=== PATIENT | male | born 1990 | race Caucasian/White ===

== ENCOUNTER 2017-06-02 19:43 | Emergency (ER) | payer BC, SELFPAY ==
[2017-06-02 19:43] VITALS: BP 127/76; PULSE 88; RESP 16; TEMP 36.7; O2SAT 97; BMI 24.3
--- NOTE | 2017-06-02 20:25 | RAD_ITS ---
STUDY: X-RAY - RIGHT FOOT CLINICAL: Male, 27 years old. Injury TECHNIQUE: 3 view(s) of the foot. COMPARISON: None. FINDINGS: Normal talus, calcaneus, and tarsal bones. Normal visualized subtalar, talonavicular, calcaneocuboid, tarsal and tarsometatarsal articulations. Normal metatarsi. Normal metatarsophalangeal joint of the great toe. Normal tibial and fibular sesamoid bones. Normal interphalangeal joint of the great toe. Normal phalanges of the great toe. Normal second through fifth metatarsophalangeal joints. Normal interphalangeal joints and phalanges of the lesser toes. The soft tissue structures are unremarkable. There is no demonstrated fracture. RAD/Foot min 3 Views IMPRESSION: Normal x-ray examination of the foot. Electronically Signed: Ruperto Ramírez MD at 20:45 EDT , Service support ,
--- NOTE | 2017-06-02 20:38 | ED.RN ---
PT ARRIVES STATING HE FELL OVER SOMEONE ELSE'S FOOT WHILE PLAYING VOLLEYBALL 2 DAYS AGO. SYMPTOMS HAVE NOT IMPROVED SINCE INITIAL FALL. BRUISES NOTED ON BOTH SIDE OF FOOT. SWELLING AND TENDERNESS NOTED. FULL RANGE OF MOTION W/SIGNIFICANT PAIN.
--- NOTE | 2017-06-02 21:03 | RAD_ITS ---
STUDY: X-RAY - RIGHT ANKLE REASON FOR EXAM: Male, 27 years old. Pain. TECHNIQUE: 3 view(s) of the ankle. COMPARISON: None. FINDINGS: Normal visualized distal tibia and fibula. Normal medial and lateral malleoli. Normal tibiotalar articulation and ankle mortise. Normal visualized talus and calcaneus. The visualized subtalar, talonavicular, calcaneocuboid and tarsal articulations are normal. There is no demonstrated fracture. The soft tissue structures are unremarkable. RAD/Ankle min 3 Views IMPRESSION: Normal x-ray examination of the ankle. Electronically Signed: Ruperto Ramírez MD at 21:25 EDT , Service support ,
--- NOTE | 2017-06-02 21:20 | ED.DCSUM_ITS ---
- ER Visit Summary Date of Service: 06/02/17 Chief Complaint: Right ankle injury History of Present Illness: The patient is a 27 M was playing volleyball 2 days ago when he came down after a jump and injured his right ankle. He notes swelling pain and ecchymosis. States that he works from home has been able to stay off of his foot today but he has been able to ambulate a little bit although it is painful. He denies any other injuries. Physical Examination: Afebrile vital signs are stable The right ankle demonstrates swelling over the lateral and medial malleolus and anteriorly. There is ecchymosis on the inferior aspects of the ankle. Negative Cerna's test. No fifth metatarsal pain. No fibular head pain. He is neurovascular intact distally. Though the patient guards the ligaments appear stable Test Results: X-rays of the foot and ankle were negative for fracture. Emergency Department Course and Treatment: Patient will use an Aircast. He was advised that if he is not improving he will need to follow-up. Impression: 1. Right ankle sprain This note was generated with [employer] dictation software. It may contain incorrect words, spelling, and punctuation that were not noted in review of the chart prior to signing ED Disposition - Plan for ED Patient: Disposition: Home or Assisted Living Chief Complaint: Lower Extremity Injury Instructions: ED Sprain Ankle W X Ray Referrals: Brian Sorto DO [STAFF PHYSICIAN] - 10-14 Days if not better
== END 2017-06-02 21:48 | disposition home or self-care (01) ==
PROVIDERS: Emergency Provider Emergency Medicine
DX: S93.401A Sprain of unspecified ligament of right ankle, initial encounter (principal); X50.1XXA Overexertion from prolonged static or awkward postures, initial encounter; Y93.68 Activity, volleyball (beach) (court); Y92.9 Unspecified place or not applicable; Y99.8 Other external cause status
CPT/HCPCS: 73610; 73630; 99283

== ENCOUNTER → 2019-04-06 08:01 | Outpatient (CLI) | payer BC, SELFPAY ==
--- NOTE | 2019-04-06 08:08 | CT_ITS ---
STUDY: CT MAXILLOFACIAL SINUSES REASON FOR EXAM: Male, 29 years old. SINUSITIS X YEARS RADIATION DOSAGE (If Supplied By Facility): CTDIvol = ( 33.06 ) mGy, DLP = ( 912.36 ) mGycm COMPARISON: None. TECHNIQUE: A CT scan of the sinuses was performed without IV contrast in the axial plane. Coronal and sagittal reconstruction images were also obtained. This exam was performed according to our departmental dose-optimization program, which includes automated exposure control, adjustment of the mA and/or kV according to patient size and/or use of iterative reconstruction technique. FINDINGS: The ventricles and sulci are normal in size and shape. The basal ganglia appear to be normal. The inner and outer tables of the skull are intact. The frontal sinuses appear to be normal. Extensive mucoperiosteal reaction is noted involving the ethmoid sinuses. There is occlusion of the maxillary infundibula with sinusitis involving the maxillary sinuses bilaterally. The patient appears to have had bilateral uncinectomies. The sphenoid sinus is normal. The mastoid air cells appear to be normal. CT/Sinus/Facial Bone IMPRESSION: Extensive mucoperiosteal reaction is seen in the ethmoid and both maxillary sinuses from chronic sinusitis.. Electronically Signed: Eloy Hensley, at 16:03 EST Tel , Service support ,
== END ==
PROVIDERS: Referring Provider Otolaryngology; Visit Provider Otolaryngology
DX: J32.9 Chronic sinusitis, unspecified (principal)
CPT/HCPCS: 70486

== ENCOUNTER → 2019-08-04 | Outpatient (CLI) | payer BC, SELFPAY | END | disposition home or self-care (01) | LOC: LABSPEC 12:09 | PROVIDERS: Referring Provider Otolaryngology; Visit Provider Otolaryngology | DX: Z11.59 Encounter for screening for other viral diseases (principal) | CPT/HCPCS: 87635; G2023; U0003 ==

== ENCOUNTER → 2019-08-09 | Outpatient (CLI) | payer BC, SELFPAY ==
--- NOTE | 2019-08-09 14:30 | TUR_PTH ---
PATIENT: MARTINA LOPES LOC: [facility] U#:[id number] AGE/SX: 29/M ROOM: RE08/09/[address]: Dr. Jose Burks MD : 1990 BED: DIS: 08/09/2019 SPEC #: [id number] RECD: 08/09/19 15:09 STATUS: MICK DEENA #: [id number] RHETT: 08/09/19 14:[address]: Jose Burks DEPT: SURGICAL PATHOLOGY RECD BY: Vicente Vee ENTERED: 08/10/19 09:13 SP TYPE: TURBINATES OTHR DR: No Primary Care Phys [facility] Tissues: A - Nasal turbinate, NOS B - Nasal turbinate, NOS Procedures: Surgery Specimen Level III HEADER OPERATION: Functional endoscopic sinus surgery PRE-OP DIAGNOSIS: Allergic rhinitis; acute recurrent pansinusitis TISSUE SUBMITTED: A - Left nasal turbinates, B - Right nasal turbinates MICROSCOPIC DIAGNOSIS A. Left nasal turbinates: Fragments of respiratory mucosa with chronic inflammation and bone. B. Right nasal turbinates: Fragments of respiratory mucosa with chronic inflammation and bone. GAURAV:rodolfo 08/16/19 MICROSCOPIC DESCRIPTION Slides are reviewed. GROSS DESCRIPTION A - Received in fixative is one container labeled with the patient's name and designated left nasal turbinates. The specimen consists of multiple irregular fragments of rao soft tissue mixed with fragments of bone that in aggregate measure 5 x 3 x 0.3 cm. The specimen is totally submitted in two cassettes after decalcification. B - Received in fixative is one container labeled with the patient's name and designated right nasal turbinates. The specimen consists of multiple irregular fragments of rao soft tissue mixed with fragments of bone that in aggregate measure 3 x 2.5 x 0.3 cm. The specimen is totally submitted in one cassette after decalcification. / GAURAV:rodolfo 08/10/19 TC:3 CPT: 26955 x2, 12082 x2
== END | disposition home or self-care (01) ==
LOC: LABSPEC 15:32
PROVIDERS: Referring Provider Otolaryngology; Visit Provider Otolaryngology
DX: J30.9 Allergic rhinitis, unspecified (principal); J01.41 Acute recurrent pansinusitis
CPT/HCPCS: 88304

== ENCOUNTER 2020-11-20 07:15 | Day surgery (SDC) | payer BC, SELFPAY ==
--- NOTE | 2020-11-19 23:33 | HP.PCM_ITS ---
History and Physical Date of Admission: 11/20/20 HISTORY OF PRESENT ILLNESS 30 year old man presents with multiple soft tissue masses that have increased in size over the last several months and are intermittently painful when bumped. The soft tissue masses involve bilateral upper extremities, bilateral lower extremities, chest wall, abdominal wall, and back. He states he had several of these removed about 10 years ago. They are located on the left medial proximal arm/shoulder, left lateral arm, left mid dorsal forearm, right proximal ulnar forearm cluster x4, right mid dorsal forearm, right medial thigh, right anterior thigh, right posterior thigh cluster x2, left medial thigh, left anterior thigh cluster x3, left posterior thigh cluster x2, left lateral chest wall, supraumbilical area, right lower back, right lateral back/flank, left lower back, and left lateral back/flank. He denies fever. He denies trauma. He presents at this time for further evaluation and treatment. FAMILY HISTORY Hypertension SOCIAL HISTORY Smoking Status: Never smoker alcohol intake: never substance use type: does not use ALLERGIES No Known Allergies MEDICATIONS NK REVIEW OF SYSTEMS General - Denies fever, fatigue, and weight loss. Eyes - Denies cataracts and glaucoma. ENT - Denies nasal congestion and sore throat. Endocrine - Denies excessive thirst and urination. Skin - Denies skin cancer. Has multiple soft tissue masses. Musculoskeletal - Denies joint pain, joint stiffness, weakness of muscles and joints, back pain, and arthritis. Neuro - Denies headaches. Cardiovascular - Denies chest pain, fatigue, and shortness of breath with exertion. Psych - Denies anxiety and depression. Respiratory - Denies chronic cough and shortness of breath. Gastrointestinal - Denies nausea, vomiting, diarrhea, and constipation. Hematologic - Denies abnormal bruising and bleeding. Genitourinary - Denies hematuria and urinary frequency. PHYSICAL EXAMINATION General - Alert and Oriented. HEENT - PERRL. EOMI. Throat is clear. Neck - Supple and nontender. No cervical adenopathy. Chest wall - On the left lateral chest wall is a soft tissue mass that measures 2 cm. Slight tenderness when bumped. Mobile. No ulceration. Lungs - Clear to auscultation. Heart - Regular rate and rhythm. Abdomen - Soft and nondistended. On the supraumbilical area is a soft tissue mass that measures 3 cm. Mobile. Slight tenderness when bumped. No ulceration. Extremities - FROM. No axillary adenopathy. Radial pulses are palpable. On the left medial proximal arm/shoulder is a soft tissue mass that measures 10 cm. Slight tenderness when bumped. Mobile. No ulceration. On the left lateral arm is a soft tissue mass that measures 4 cm. Slight tenderness when bumped. Mobile. No ulceration. On the left mid dorsal forearm is a soft tissue mass that measures 2 cm. Slight tenderness when bumped. Mobile. No ulceration. On the right proximal ulnar forearm are soft tissue masses cluster x4. They measure 4 cm proximally, 1.5 cm x2 laterally, and 4 cm distally. Slight tenderness when bumped. Mobile. No ulceration. On the right mid dorsal forearm is a soft tissue mass that measures 2 cm. Mobile. Slight tenderness when bumped. No ulceration. On the right medial thigh is a soft tissue mass that measures 2 cm. Mobile. Slight tenderness when bumped. No ulceration. On the right anterior thigh is a soft tissue mass that measures 2 cm. Mobile. Slight tenderness when bumped. No ulceration. On the right posterior thigh are soft tissue masses cluster x2. They measure 2 cm each. Mobile. Slight tenderness when bumped. No ulceration. On the left medial thigh is a soft tissue mass that measures 2 cm. Mobile. Slight tenderness when bumped. No ulceration. On the left anterior thigh are soft tissue masses cluster x3. They measure 2 cm each. Mobile. Slight tenderness when bumped. No ulceration. On the left posterior thigh are soft tissue masses cluster x2. They measure 2 cm each. Mobile. Slight tenderness when bumped. No ulceration. Back - On the right lower back is a soft tissue mass that measures 5 cm. Mobile. Slight tenderness when bumped. No ulceration. On the left lower back is a soft tissue mass that measures 2 cm. Mobile. Slight tenderness when bumped. No ulceration. On the right lateral back/flank is a soft tissue mass that measures 2 cm. Mobile. Slight tenderness when bumped. No ulceration. On the left lateral back/flank is a soft tissue mass that measures 3 cm. Mobile. Slight tenderness when bumped. No ulceration. Neuro - CN II-XII grossly intact. Psych - Normal mood and affect. ASSESSMENT 1. 10 cm soft tissue mass left medial proximal arm/shoulder. 2. 4 cm soft tissue mass left lateral arm. 3. 2 cm soft tissue mass left lateral chest wall. 4. 3 cm soft tissue mass supraumbilical area. 5. 2 cm soft tissue mass left mid dorsal forearm. 6. 2 cm soft tissue mass right lateral back/flank. 7. 3 cm soft tissue mass left lateral back/flank. 8. 2 cm soft tissue mass left lower back. 9. 5 cm soft tissue mass right lower back. 10. 2 cm soft tissue masses cluster x2 left posterior thigh. 11. 2 cm soft tissue masses cluster x2 right posterior thigh. 12. 4 cm x2 and 1.5 cm x2 soft tissue masses cluster x4 right proximal ulnar forearm. 13. 2 cm soft tissue mass right mid dorsal forearm. 14. 2 cm soft tissue mass right medial thigh. 15. 2 cm soft tissue mass right anterior thigh. 16. 2 cm soft tissue mass left medial thigh. 17. 2 cm soft tissue masses cluster x3 left anterior thigh. PLAN RECOMMEND EXCISION OF THESE PAINFUL SOFT TISSUE MASSES AND SEND THEM TO PATHOLOGY FOR ANALYSIS TO RULE OUT CARCINOMA. THE SURGERY WILL BE DONE UNDER LOCAL ANESTHESIA AND IV SEDATION ON AN OUTPATIENT BASIS. I USUALLY LIMIT IV SEDATION CASES TO 2 HOURS OR LESS. SO THESE SOFT TISSUE MASSES WILL BE EXCISED IN STAGES. I WOULD ALLOW UP TO 3 MONTHS IN BETWEEN SURGERIES TO ALLOW HEALING. ALSO I TRY TO DO THEM BASED ON LOCATION TO MINIMIZE HAVING TO TURN THE PATIENT DURING SURGERY. WILL START WITH LESIONS 1-5 FOR THE FIRST SESSION. FOR THE SECOND SESSION WILL DO LESIONS 6-11. FOR THE THIRD SESSION WILL DO LESIONS 12-13. FOR THE FOURTH SESSION WILL DO LESIONS 14-17. Patient was informed of the risks and complications of the procedure including alternatives to surgery. These were discussed with the patient personally. Patient voices understanding and wishes to proceed. Some of the risks and complications were included in a form from the [employer]. We discussed the current risks associated with COVID-19. While it is understood that there is a community spread of COVID-19, the risk of jackelin COVID-19 while at [place] ([facility]) is very low; however, the risk cannot be completely mitigated because of the community spread of the disease. We discussed in detail the risk of exposure to and/or potential harm posed by the COVID-19 virus with having a surgery/procedure at this time versus the risk of delaying the surgery/procedure. It is not possible to know either the risk of delaying the surgery or procedure or chance of getting an infection with perfect accuracy, but a joint decision was made to proceed at this time with the scheduled surgery/procedure as indicated on the consent form. Patient was notified that we will need to comply with any screening or testing WC wishes to perform or that surgery may be delayed for any positive results. Procedure Criteria Procedure Type:?Elective COVID Risk Discussion: The surgeon/proceduralist and patient have discussed in detail the risk of exposure to and/or potential harm posed by the COVID-19 virus with having a surgery/procedure at this time versus the risk of delaying the surgery/procedure.? It is not possible to know either the risk of delaying the surgery or procedure or chance of getting an infection with perfect accuracy, but a joint decision was made between the patient and the surgeon/proceduralist to proceed at this time with the scheduled surgery/procedure as indicated on the consent form.
[2020-11-20] VITALS (7 sets, daily range): BP systolic 109–123; BP diastolic 67–76; PULSE 63–71; RESP 14–18; TEMP 36.1–36.4; O2SAT 97–100; BMI 25.5
[2020-11-20] MEDS: Lactated Ringers 1,000 ML 100 ML IV (07:57)
--- NOTE | 2020-11-20 08:45 | TISS_PTH ---
PATIENT: MARTINA LOPES [place] [facility] [place][id number] AGE/SX: 30/M ROOM: RE11/20/[address]: Dr. Chaz Nogueira MD : 1990 BED: DIS: 11/20/2020 SPEC #: [id number] RECD: 11/20/20 11:25 STATUS: MICK [facility] #: [id number] RHETT: 11/20/20 08:[address]: Chaz Nogueira DEPT: SURGICAL PATHOLOGY RECD BY: Vicente Vee ENTERED: 11/20/20 13:26 SP TYPE: Tissue Bx OT DR: No Primary Care Phys Tissues: A - Soft tissues, NOS B - Soft tissues, NOS C - Soft tissues, NOS D - Soft tissues, NOS E - Soft tissues, NOS F - Soft tissues, NOS G - Soft tissues, NOS Procedures: Surgery Specimen Level III HEADER OPERATION: Excision soft tissue masses, left proximal shoulder PRE-OP DIAGNOSIS: 10 cm soft tissue mass left medial proximal arm/shoulder; 4 cm soft tissue mass left lateral arm; 2 cm soft tissue mass left lateral chest wall; 3 cm soft tissue mass supraumbilical area; 2?cm soft tissue mass left mid dorsal forearm TISSUE SUBMITTED: A - Left lateral chest wall, B - Left mid dorsal ulnar, C - Left mid dorsal radial, D - Left proximal forearm, E - Left lateral arm, F - Left proximal shoulder, G - Supraumbilical MICROSCOPIC DIAGNOSIS A. Left lateral chest wall lesion, biopsy: Mature adipose tissue, consistent with lipoma. B. Left mid dorsal ulnar, excisional biopsy: Angiolipoma. C. Left mid dorsal radial mass, biopsy: Angiolipoma. D. Left proximal forearm, biopsy: Angiolipoma. E. Left lateral arm mass, biopsy: Mature adipose tissue, consistent with lipoma. F. Left proximal shoulder mass, biopsy: Mature adipose tissue, consistent with lipoma. G. Supraumbilical mass, biopsy: Fragments of mature adipose tissue, consistent with focal area of angiolipoma. SJ:rodolfo 11/21/2020 MICROSCOPIC DESCRIPTION Slides are reviewed. GROSS DESCRIPTION A - Received in fixative is one container labeled with the patient's name and designated left lateral chest wall. The specimen consists of an irregular piece of yellow adipose tissue measuring 2.5 x 2 x 0.5 cm. The entire specimen is submitted in one cassette. B - Received in fixative is one container labeled with the patient's name and designated left mid dorsal ulna. The specimen consists of a piece of yellow adipose tissue measuring 1 x 1 x 0.2 cm. The specimen is bisected and submitted entirely in one cassette. C - Received in fixative is one container labeled with the patient's name and designated left mid dorsal radial. The specimen consists of a piece of yellow adipose tissue measuring 1.7 x 1 x 0.4 cm. The specimen is bisected and submitted entirely in one cassette. D - Received in fixative is one container labeled with the patient's name and designated left proximal forearm. The specimen consists of a piece of yellow adipose tissue measuring 1 x 1 x 0.5 cm. The specimen is bisected and submitted entirely in one cassette. E - Received in fixative is one container labeled with the patient's name and designated left lateral arm. The specimen consists of multiple pieces of yellow adipose tissue that in aggregate measure 3 x 2 x 1.5 cm. The largest piece measures 2 cm in greatest dimension. Sections reveal yellow adipose cut surfaces without area of hemorrhage, necrosis or cystic degeneration. F[employer] Teacher sections are submitted in one cassette. F - Received in fixative is one container labeled with the patient's name and designated left proximal shoulder. The specimen consists of two irregular pieces of yellow adipose tissue measuring 8 x 6.5 x 3 cm and 5 x 4 x 2 cm. Sections reveal yellow adipose cut surfaces without area of hemorrhage, necrosis or cystic degeneration. Fitness Studies Teacher sections are submitted in four cassettes. G - Received in fixative is one container labeled with the patient's name and designated supraumbilical. The specimen consists of three pieces of yellow adipose tissue that in aggregate measure 2 x 1.5 x 0.7 cm. The largest piece is bisected. The entire specimen is submitted in one cassette. / GAURAV:rodolfo 11/20/20 TC:1 CPT: 06844 x7
[2020-11-20] MEDS: Cefazolin 2 GM in 0.9% Normal Saline 100 ML IV (08:46)
[2020-11-20] MEDS: Lidocaine 1% /Epi 1:100 (50ml) 50 ML VIAL (10:00)
[2020-11-20] MEDS: Mupirocin Ointment 22gm Tube 1 APPLIC (10:07)
--- NOTE | 2020-11-20 10:13 | OP.PCM_ITS ---
Problems Associated Problem List Diagnoses (1) Mass of left upper extremity: (2) Mass of chest wall: (3) Abdominal wall mass of epigastric region: Report of Operation Date of Procedure: 11/20/20 Pre-Operative Diagnosis: 1. 10 cm soft tissue mass left medial proximal arm/sh oulder. 2. 4 cm soft tissue mass left lateral arm. 3. 2 cm soft tissue mass left lateral chest wall. 4. 3 cm soft tissue mass supraumbilical area. 5. 2 cm soft tissue mass left mid dorsal forearm, radial. 6. 2 cm soft tissue mass left mid dorsal forearm, ulnar. 7. 2 cm soft tissue mass left proximal forearm. Post-Operative Diagnosis: Same. Surgery/Procedure Performed:: 1. Excision 10 cm soft tissue mass left medial proximal arm/shoulder with 10 cm layered closure. 2. Excision 4 cm soft tissue mass left lateral arm with 4 cm layered closure. 3. Excision 2 cm soft tissue mass left lateral chest wall with 2 cm layered closure. 4. Excision 3 cm soft tissue mass supraumbilical area with 3 cm layered closure. 5. Excision 2 cm soft tissue mass left mid dorsal forearm, radial, with 2 cm layered closure. 6. Excision 2 cm soft tissue mass left mid dorsal forearm, ulnar, with 2 cm layered closure. 7. Excision 2 cm soft tissue mass left proximal forearm with 2 cm layered closure. Description of Surgical Findings:: 30 year old man presents with multiple soft tissue masses that have increased in size over the last several months and are intermittently painful when bumped. The soft tissue masses involve bilateral upper extremities, bilateral lower extremities, chest wall, abdominal wall, and back. He states he had several of these removed about 10 years ago. They are located on the left medial proximal arm/shoulder, left lateral arm, left mid dorsal forearm, right proximal ulnar forearm cluster x4, right mid dorsal forearm, right medial thigh, right anterior thigh, right posterior thigh cluster x2, left medial thigh, left anterior thigh cluster x3, left posterior thigh cluster x2, left lateral chest wall, supraumbilical area, right lower back, right lateral back/flank, left lower back, and left lateral back/flank. He denies fever. He denies trauma. Patient was informed of the risks and complications of the procedure including alternatives to surgery. These were discussed with the patient personally. Patient voices understanding and wishes to proceed. Some of the risks and complications were included in a form from the [employer]. I used Tony absorbable hemostat, (left medial proximal arm/shoulder). Reference Number - [id number]. Lot Number - [id number]. Expiration - July 05, 2025. Surgeon: Chaz Nogueira millwork estimator: Billy Scales Type of Anesthesia: Local MAC (xylocaine with epinephrine and IV sedation.) Specimen's removed: 1. Soft tissue mass left medial proximal arm/shoulder to Pathology. 2. Soft tissue mass left lateral arm to Pathology. 3. Soft tissue mass left lateral chest wall to Pathology. 4. Soft tissue mass supraumbilical area to Pathology. 5. Soft tissue mass left mid dorsal forearm, radial, to Pathology. 6. Soft tissue mass left mid dorsal forearm, ulnar, to Pathology. 7. Soft tissue mass left proximal forearm to Pathology. Drains: Ted (left medial proximal arm/shoulder). Estimated Blood Loss (mL): 20. Description of Procedure: Patient was taken to OR in supine position and was given IV sedation. The left upper extremity and shoulder, and supraumbilical area and left lateral chest wall areas were prepped and draped in the usual fashion. SCD's were placed for DVT prophylaxis. Perioperative antibiotics were given intravenously. The various soft tissue masses (left medial proximal arm/shoulder, left lateral arm, left lateral chest wall, supraumbilical area, left mid dorsal forearm, radial, left mid dorsal forearm, ulnar, and left proximal forearm) were infiltrated with xylocaine and epinephrine. After waiting 5 minutes for the anesthetic to take effect, I made longitudinal, oblique, and horizontal incisions into the subcutaneous tissue where these soft tissue masses were located. The masses were well encapsulated and sharply dissected free. Some of the soft tissue masses were adherent to the underlying muscle. After their excision, I sent these soft tissue masses (left medial proximal arm/shoulder, left lateral arm, left lateral chest wall, supraumbilical area, left mid dorsal forearm, radial, left mid dorsal forearm, ulnar, and left proximal forearm) separately to Pathology for analysis to rule out carcinoma. Hemostasis was obtained with electrocautery. The wounds were irrigated with saline. The left medial proximal arm/shoulder wound was quite large after the excision of the soft tissue mass (10 cm). I placed a size 15 Ted drain through a separate stab incision into this wound and secured it to the skin with 3-0 Nylon suture. I sprayed Tony absorbable hemostat into this large wound to minimize seroma formation. All 7 of these wounds were closed in a layered fashion with 4-0 Monocryl interrupted sutures for the deep dermis and subcutaneous tissue. The skin was approximated with 4-0 Prolene simple interrupted sutures. Antibiotic ointment was applied to the suture lines followed by 4x4 gauze and compression daniel wrap for the 5 lesions on the left upper extremity and shoulder area. The two incisions on the supraumbilical area and left lateral chest wall area were dressed with an Op-site dressing. The left medial proximal arm/shoulder incision was 10 cm. The left lateral arm incision was 4 cm. The left lateral chest wall incision was 2 cm. The supraumbilical area incision was 3 cm. The left mid dorsal forearm, radial, incision was 2 cm. The left mid dorsal forearm, ulnar, incision was 2 cm. The left proximal forearm incision was 2 cm. Patient tolerated the procedure well and was sent to PACU in satisfactory condition. Patient will be sent home on antibiotics and pain medication. He will keep his left arm elevated during the initial postoperative period. Patient will followup in a week for a wound check and for discussion of the pathology report. The drain will be removed in 10-14 days. The sutures will be removed in 2 weeks. After healing has occurred, will proceed with more excision of soft tissue masses on another part of his body. Grafts/Implants Used: Tony. Complications None. Admit VTE Documentation VTE Present on Admission: No VTE Mechan Device Prophylaxis: SCD's VTE Pharm Prophylaxis ordered?: No Addendum Addendum: Surgery Charges CPT - 76353 ICD-10 - R22.32 80873 R22.32 95528 R22.2 80355 R19.06 02222 R22.32 16431 R22.32 79847 R22.32
--- NOTE | 2020-11-20 11:44 | PCM.DC ---
Discharge Instructions Diet Discharge Diet: No restrictions Activity Discharge Activity: May Not Drive (when using narcotics), May Not Shower (until the drain is removed.) and - (no heavy lifting left arm. elevate left arm.) May shower in (days): 7 (after the drain is removed.) May resume sexual activity in: No Restrictions Weight Bearing Status: Weight bearing as tolerated Lifting Restrictions: 20 lbs. Keep extremity elevated above heart level: Left Arm Dressing / Incision Call your doctor if your incision/area has: Continuous Slow Oozing, Sudden Increased Bleeding, Increased Pain/ Swelling, Increased Redness, Foul Smelling Discharge and Swelling at the incision site Call your doctor if you observe: Fever of 101 or Higher, Coldness, Increased Pain, Shortness of breath, Chest pain, Calf discomfort and Uncontrolled pain Suture Line Care: - (apply antibiotic ointment to suture lines daily.) Change Dressing in: 2 days (apply antibiotic ointment to suture line followed by gauze dressing and a compression daniel wrap) Cleanse incision/area with: - (may get incision wet in the shower after the drian is removed.) Drain: Suction (empty and record outpatientwwww) Follow Up Care Please Follow Up With: Chaz Nogueira MD When: 0ne week. call [phone] for appt. Test Results: Test results from this visit will be discussed in further detail at your follow-up appointment, if applicable. Discharge Plan Admission Primary Reason for Your Visit: multiple lipomas Attending Provider: Chaz Nogueira Primary Care Provider: Care Physician,No Primary Discharge Orders/Prescriptions Prescriptions: New doxycycline hyclate 100 mg capsule 100 mg PO BID Qty: 30 RF: 0 oxycodone-acetaminophen [Percocet] 5-325 mg tablet 1 tab PO Q6H PRN (Reason: pain (scale score 7-10)) 7 Days Qty: 28 RF: 0 Referrals / Follow Up: Care Physician,No Primary [Primary Care Provider] - Disposition Disposition (needs filled in before D/C Order can be placed): Home, Self Care
== END 2020-11-20 12:04 | disposition home or self-care (01) ==
LOC: SDC 07:16 → AC 07:18
PROVIDERS: Referring Provider Surgery; Visit Provider Surgery
PROC: (CPT 21555; principal; 2020-11-20 08:30)
DX: D17.22 Benign lipomatous neoplasm of skin and subcutaneous tissue of left arm (principal); D17.1 Benign lipomatous neoplasm of skin and subcutaneous tissue of trunk
CPT/HCPCS: 00800; 21555; 22903; 23071; 24071; 25075 ×3; 88304; 88305; J7120; J2405

== ENCOUNTER → 2023-10-21 | Outpatient (CLI) | payer BC, SELFPAY ==
[2023-10-21 12:27] LABS: Absolute Lymphocyte Count 1.06 X10^3/uL (0.83-4.51); Absolute Neutrophil Count 2.8 X10^3/uL (2.0-7.7); Basophil# 0.01 X10^3/uL; Basophil% 0.2 % (0-1); Eosinophil# 0.12 X10^3/uL; Eosinophils% 2.8 % (0-5); Hematocrit 45.2 % (40-54); Hemoglobin 15.1 g/dL (13.0-16.5); Lymphocyte # 1.06 X10^3/ul (0.83-4.51); Lymphocyte % 24.4 % (19-41); Mean Corp Hgb Conc 33.4 g/dL (32-36); Mean Corpuscular Hgb 27.6 pg (27.0-32.0); Mean Corpuscular Volume 82.5 fL (80-94); Mean Platelet Vol. 9.4 fl (6.2-12.0); Monocyte% 6.9 % (0-10); NRBC Flagged by Analyzer 0 % (0-5); Neutrophil # 2.84 X10^3/uL (2.7-7.7); Neutrophil % 65.2 % (47-70); Platelet Count 241 K/mm3 (150-450); RBC Distribution Width CV 12.5 % (11.6-14.6); RBC Distribution Width SD 37.3 fl (35.1-43.9); Red Blood Count 5.48 M/mm3 (4.6-6.2); White Blood Count 4.4 K/mm3 (4.4-11.0)
[2023-10-21 12:45] LABS: ALB/GLOB Ratio 1.1 RATIO (0.9-2.4); AST(SGOT) 15 U/L (15-37); Alanine Aminotransfer ALT/SGPT 19 U/L (16-61); Albumin, Serum 3.7 g/dL (3.2-5.0); Alkaline Phosphatase 63 U/L (45-117); Anion Gap 4 (5-15); BUN 17 mg/dL (7-18); BUN/Creat Ratio 15.2 RATIO (10-20); Calcium,Total 9.1 mg/dL (8.5-10.1); Chloride 104 mmol/L (98-107); Cholesterol 132 mg/dL (200); Creatinine, Serum 1.12 mg/dL (0.70-1.30); EST Glomerular Filtration Rate 80 mL/min (>60); Est Glom Filt Rate - Afr Amer 97 mL/min (>60); Globulin 3.4 g/dL (2.2-4.2); Glucose 92 mg/dL (74-106); High Density Lipoprotein 44 mg/dL; Potassium 4.2 mmol/L (3.5-5.1); Protein, Total 7.1 g/dL (6.4-8.2); Sodium Level 138 mmol/L (136-145); Triglycerides 82 mg/dL; Very Low Density Lipoprotein 16 mg/dL (5-40)
== END | disposition home or self-care (01) ==
LOC: BFHLAB 09:27
PROVIDERS: Referring Provider Nurse Practitioner Family; Visit Provider Nurse Practitioner Family
DX: Z00.01 Encounter for general adult medical examination with abnormal findings (principal)
CPT/HCPCS: 36415; 80053; 80061; 85025

== ENCOUNTER → 2024-11-07 | Outpatient (CLI) | payer BC, SELFPAY ==
[2024-11-07 10:23] LABS: Hematocrit 45.4 % (40-54); Hemoglobin 16.0 g/dL (13.0-16.5); Immature Granulocytes Count 0.010 X10^3/uL (0.0-0.0); Mean Corp Hgb Conc 35.2 g/dL (32-36); Mean Corpuscular Volume 79.0 fL (80-94); Mean Platelet Vol. 9.1 fl (6.2-12.0); NRBC Flagged by Analyzer 0 % (0-5); Platelet Count 261 K/mm3 (150-450); RBC Distribution Width CV 12.4 % (11.6-14.6); RBC Distribution Width SD 35.2 fl (35.1-43.9); Red Blood Count 5.75 M/mm3 (4.6-6.2); White Blood Count 3.8 K/mm3 (4.4-11.0)
[2024-11-07 11:07] LABS: AST(SGOT) 19 U/L (<=37); Alanine Aminotransfer ALT/SGPT 20 U/L (<=46); Albumin, Serum 4.5 g/dL (3.5-5.0); Alkaline Phosphatase 62 U/L (40-129); Anion Gap 12 (5-15); BUN 21 mg/dL (4-19); BUN/Creat Ratio 18.1 RATIO (10-20); Calcium,Total 9.0 mg/dL (7.6-11.0); Carbon Dioxide 24.7 mmol/L (21.0-32.0); Chloride 103 mmol/L (98-108); Cholesterol 170 mg/dL (<=200); Globulin 2.5 g/dL (2.2-4.2); Glucose 100 mg/dL (70-99); Low Density Lipoprotein Calc. 98 mg/dL; Potassium 4.0 mmol/L (3.3-5.1); Triglycerides 117 mg/dL; Very Low Density Lipoprotein 23 mg/dL (5-40); cholesterol:hdl ratio screen 3.47
[2024-11-11 07:07] LABS: Egg, Whole <0.10 kU/L (Class 0); Mussels <0.10 kU/L (Class 0)
== END | disposition home or self-care (01) ==
PROVIDERS: PCP Nurse Practitioner Family; Referring Provider Nurse Practitioner Family; Visit Provider Nurse Practitioner Family
DX: Z00.01 Encounter for general adult medical examination with abnormal findings (principal); M25.561 Pain in right knee; R19.4 Change in bowel habit
CPT/HCPCS: 36415; 73564; 80053; 80061; 85025; 86003; 86005